=== PATIENT | female | born 1965 ===

== ENCOUNTER 2018-08-30 09:45 | Emergency (ER) | payer MEDICARE, OTHER ==
[~2018-08-30] VITALS: Ht 160 cm; Wt 98.9 kg
[~2018-08-30 09:45] MED LIST: ALBU90OI INH; AMLO5; AMLO5 PO; ASPI81CH PO; CARV25 PO; FURO20 PO; LISI20 PO; METF500C; Metformin HCl500 MG PO; Omeprazole20 M1 PO; SPIR25 PO
== END 2018-08-30 11:44 | disposition left against medical advice (07) ==
LOC: ER 09:45
DX: Z53.21 Procedure and treatment not carried out due to patient leaving prior to being seen by health care provider (principal)

== ENCOUNTER 2018-09-06 07:51 | Emergency (ER) | payer MEDICARE, OTHER ==
[~2018-09-06] VITALS: Ht 162.6 cm; Wt 97.5 kg
[2018-09-06] MEDS ORDERED: MAVYRET 100-401 EACH PO (08:16)
[2018-09-06 09:11] LABS: BASOPHILS ABSOLUTE AUTO 0.02 K/mm3 (0.00-0.23); BASOPHILS PERCENT AUTO 0 % (0-2); EOSINOPHILS ABSOLUTE AUTO 0.14 K/mm3 (0.00-0.68); EOSINOPHILS PERCENT AUTO 2 % (0-6); Hematocrit 39.6 % (33.0-51.0); Hemoglobin 13.3 g/dL (11.5-16.0); IMMATURE GRAN ABSOLUTE AUTO 0.01 K/mm3 (0.00-0.10); IMMATURE GRAN PERCENT AUTO 0 % (0-1); LYMPHOCYTES ABSOLUTE AUTO 2.78 K/mm3 (0.84-5.20); LYMPHOCYTES PERCENT AUTO 43 % (21-46); MONOCYTES ABSOLUTE AUTO 0.45 K/mm3 (0.16-1.47); MONOCYTES PERCENT AUTO 7 % (4-13); Mean Corpuscular HGB 32.2 pg (26.0-34.0); Mean Corpuscular HGB Conc 33.6 g/dL (31.5-36.5); Mean Corpuscular Volume 96 fL (80-100); Mean Platelet Volume 10.8 fL (9.1-12.4); NEUTROPHILS ABSOLUTE AUTO 3.13 K/mm3 (1.96-9.15); NEUTROPHILS PERCENT AUTO 48 % (41-73); Platelet Count 106 K/mm3 (150-400); RDW Coefficient Variation 13.4 % (11.7-14.2); RDW Standard Deviation 47.5 fL (35.1-46.3); Red Blood Cell Count 4.13 M/mm3 (3.80-5.20); White Blood Cell Count 6.53 K/mm3 (4.00-11.30)
[2018-09-06 09:31] LABS: Alanine Aminotransfer (ALT/SGP 51 U/L (12-78); Albumin, Blood 3.2 g/dL (3.4-5.0); Albumin/Globulin Ratio 0.8 (0.8-1.8); Alk Phos 98 U/L (50-136); Anion Gap 6 mmol/L (6-16); Aspartate Aminotrans (AST/SGOT 40 U/L (12-37); Bilirubin, Total 0.4 mg/dL (0.1-1.0); Blood Urea Nitrogen 14 mg/dL (8-24); Bun/Creatinine Ratio 17.4 (12.0-20.0); CO2, Blood 26 mmol/L (21-32); Calcium, Blood 8.2 mg/dL (8.5-10.1); Chloride, Blood 107 mmol/L (98-108); Globulin, Blood 3.9 g/dL (2.2-4.0); Glomerular Filtration Rate >60 (60-); Glucose, Blood 118 mg/dL (70-99); Sodium, Blood 139 mmol/L (136-145); Total Protein, Blood 7.1 g/dL (6.4-8.2); Troponin I <0.015 ng/mL (0.000-0.040)
== END 2018-09-06 11:15 | disposition left against medical advice (07) ==
LOC: ER 07:51
PROVIDERS: Physician Assistant
DX: R04.2 Hemoptysis (principal); Z79.899 Other long term (current) drug therapy; Z79.82 Long term (current) use of aspirin; J44.9 Chronic obstructive pulmonary disease, unspecified; E11.9 Type 2 diabetes mellitus without complications; Z87.891 Personal history of nicotine dependence
CPT/HCPCS: 36415; 71046; 80053; 83880; 84484; 85025; 93005; 93010; 99283-25

== ENCOUNTER 2019-07-29 17:14 | Emergency (ER) | payer OTHER, MEDICARE ==
[~2019-07-29] VITALS: Ht 162.6 cm; Wt 108.4 kg
[~2019-07-29 17:14] MED LIST changes: +MAVYRET 100-401 EACH PO
[2019-07-29] MEDS ORDERED: Norco 5-325 Ta1 EACH PO (18:22)
== END 2019-07-29 18:37 | disposition home or self-care (01) ==
LOC: ER 17:14
DX: S92.515A Nondisplaced fracture of proximal phalanx of left lesser toe(s), initial encounter for closed fracture (principal); J44.9 Chronic obstructive pulmonary disease, unspecified; E11.9 Type 2 diabetes mellitus without complications; Z79.899 Other long term (current) drug therapy; Z79.51 Long term (current) use of inhaled steroids; Z79.82 Long term (current) use of aspirin; Z87.891 Personal history of nicotine dependence; W22.8XXA Striking against or struck by other objects, initial encounter
CPT/HCPCS: 73630; 99283-25; A9270-GY

== ENCOUNTER → 2020-03-21 | Outpatient (CLI) | payer MEDICARE, OTHER ==
[~2020-03-21] MED LIST changes: +Norco 5-325 Ta1 EACH PO
[2020-03-23 07:10] LABS: HPV 16 Negative (Negative); HPV 18 Negative (Negative); HPV OTHER HR TYPES Negative (Negative)
== END | disposition home or self-care (01) ==
LOC: LAB 17:28 → LAB SHORT 17:28
PROVIDERS: Family Medicine
DX: Z01.419 Encounter for gynecological examination (general) (routine) without abnormal findings (principal)
CPT/HCPCS: 87624; G0123

== ENCOUNTER 2021-11-29 02:07 | Inpatient (IN) | payer MEDICARE, OTHER ==
[~2021-11-29] VITALS: Ht 167.6 cm; Wt 106.6 kg
[2021-11-29 02:40] LABS: Calcium, Ionized (POC) 1.48 mmol/L (1.10-1.46); Chloride (POC) 99 mmol/L (98-108); Creatinine (POC) 1.1 mg/dL (0.6-1.0); Glucose (ISTAT POC) 273 mg/dL (70-99); Hemoglobin (POC) 16.3 g/dL (12.0-16.0); Potassium (POC) 4.8 mmol/L (3.5-5.5); Sodium (POC) 139 mmol/L (135-148); Total CO2 (POC) 24 mmol/L (21-32)
[2021-11-29 03:05] LABS: BASOPHILS ABSOLUTE AUTO 0.09 K/mm3 (0.00-0.23); BASOPHILS PERCENT AUTO 1 % (0-2); EOSINOPHILS ABSOLUTE AUTO 0.13 K/mm3 (0.00-0.68); EOSINOPHILS PERCENT AUTO 1 % (0-6); Hematocrit 50.7 % (33.0-51.0); Hemoglobin 15.7 g/dL (11.5-16.0); Mean Corpuscular HGB 30.9 pg (26.0-34.0); Mean Corpuscular Volume 100 fL (80-100); NRBC ABSOLUTE 0.07 K/mm3 (0.00-0.02); NRBC Auto 0.4 /100 WBC (0.0-0.2); Platelet Count 120 K/mm3 (150-400); RDW Coefficient Variation 13.2 % (11.7-14.2); RDW Standard Deviation 49.6 fL (35.1-46.3); Red Blood Cell Count 5.08 M/mm3 (3.80-5.20); White Blood Cell Count 18.46 K/mm3 (4.00-11.30)
[2021-11-29 03:10] LABS: IMMATURE GRAN ABSOLUTE AUTO 0.49 K/mm3 (0.00-0.10); IMMATURE GRAN PERCENT AUTO 3 % (0-1); LYMPHOCYTES ABSOLUTE AUTO 12.18 K/mm3 (0.84-5.20); LYMPHOCYTES PERCENT AUTO 66 % (21-46); MONOCYTES ABSOLUTE AUTO 0.58 K/mm3 (0.16-1.47); MONOCYTES PERCENT AUTO 3 % (4-13); NEUTROPHILS ABSOLUTE AUTO 4.99 K/mm3 (1.96-9.15); NEUTROPHILS PERCENT AUTO 27 % (41-73)
[2021-11-29 03:16] LABS: Magnesium, Blood 2.2 mg/dL (1.6-2.4)
[2021-11-29 03:21] LABS: International Normalized Ratio 1.23; Prothrombin Time Results 12.7 Sec (9.7-11.5)
[2021-11-29 03:31] LABS: Albumin, Blood 2.9 g/dL (3.4-5.0); Albumin/Globulin Ratio 0.9 (0.8-1.8); Bilirubin, Total 0.3 mg/dL (0.1-1.0); Bun/Creatinine Ratio 10.5 (12.0-20.0); Calcium, Blood 13.7 mg/dL (8.5-10.1); Creatinine, Blood 1.05 mg/dL (0.40-1.00); Globulin, Blood 3.3 g/dL (2.2-4.0); Potassium, Blood 5.3 mmol/L (3.5-5.5); Total Protein, Blood 6.2 g/dL (6.4-8.2)
[2021-11-29 05:59] LABS: Source, Urine Foley catheter
[2021-11-29 06:03] LABS: Appearance, Urine Clear (Clear); Bilirubin, Urine Neg (Neg); Blood, Urine 2+ (Neg); Color, Urine Yellow (P-Yellow); Glucose Qualitative, Urine Neg (Neg); Ketones, Urine Neg (Neg); Leukocyte Esterase, Urine Neg (Neg); Nitrite, Urine Neg (Neg); Protein, Urine 3+ (Neg); Urobilinogen, Urine NORM (Normal)
[2021-11-29 06:08] LABS: Bacteria Rare /hpf; Squamous Epithelial Cells Rare /hpf (Few); White Blood Cells, Urine Not Seen /hpf (0-5)
[2021-11-29 06:09] LABS: Amorphous Light (0-Heavy); Renal Epithelial Few /hpf (0-Rare)
[2021-11-29 06:13] LABS: U Amphetamine Screen DETECTED; U Barbituate Screen Not Detected; U Benzodiazapine Screen Not Detected; U Buprenorphine Screen Not Detected; U Cannabinoids Screen DETECTED; U Cocaine Screen Not Detected; U Methadone Screen Not Detected; U Methamphetamine Screen DETECTED; U Opiates Screen Not Detected; U Oxycodone Screen Not Detected; U Phencyclidine Screen Not Detected; U Propoxyphene Screen Not Detected
--- NOTE | 2021-11-29 06:35 | NUR ---
RECEIVED REPORT FROM CHAUNCEY WRIGHT, RN AT 0430. PT WAS AT HOME, STATED SHE COULD NOT BREATHE AND THEN COLLAPSED, WHICH WAS WITNESSED BY FAMILY. FAMILY STARTED CPR AND EMS WAS CALLED. EMS CONTINUED CPR AND GAVE 5 ROUNDS OF EPI, ROSC WAS OBTAINED WHEN THE APPROACHED THE ED. 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 PT ARRIVED AT 0510 ON VENT, FENTANYL AT 50MCG/HR, LEVOPHED AT 15MCG/MIN AND DOPAMINE AT 10MCG/KG/MIN, INFUSING INTO CENTRAL RIGHT IJ. TEMP OF 96.5. SHE IS NOT ALERT, DOES NOT RESPOND TO STIMULI, PUPILS 4MM, SLUGGISH BUT REACTIVE. ONLY PALPABLE PULSE IS TO RIGHT FEMORAL. BLEEDING NOTED FROM LEFT GROIN, APPEARS A PUNCTURE SITE. GAUZE APPLIED AND TAPED. HR IS FULLY PACED, RATE IN 70'S PER ZOLL. BP HYPOTENSIVE, LEVOPHED TITRATED TO 30MCG/MIN AND DOPAMINE INCREASED TO 20MCG/KG/MIN. LACY PATENT, MINIMAL URINE OUT, SENT FOR UA AND TOX SCREEN. PT HAS I/O TO LEFT LOWER LEG, AND 2 20G PERIPHERAL IV IN LEFT ARM. MULTIPLE FAMILY MEMBERS PRESENT, PT'S RING ON RIGHT HAND REMOVED AND GIVEN TO DAUGHTER DRISS. DR. QUAN TO BEDSIDE AROUND 0545, SPOKE WITH FAMILY AND FAMILY WOULD LIKE TO PROCEED A DNR AND WILL MAKE COMFORT SOON FAMILY MEMBERS SAY GOODBYE. PT'S SON, GLO BENITEZ, ESTABLISHED PRIMARY DECISION MAKER BY [employer] [facility]. AT 0620, RT CALLED TO BEDSIDE FOR EXTUBATION PER FAMILY REQUEST. FENTANYL REMAINED ON, LEVOPHED AND DOPAMINE TURNED OFF. PT EXTUBATED AT 0640 AND TIME OF 0645. FAMILY HAVE DECIDED ON [place] [facility] IN [place]. PT HAS NO BELONGINGS AT THIS TIME. PT IS NOT A CANDIDATE FOR ORGAN DONATION. DAY SHIFT CHARGE TO CALL MORTUARY.
== END 2021-11-29 06:45 | DRG 309 ==
LOC: ER 02:07 → ICUW 03:53 → ICUE 05:06
PROVIDERS: Student in an Organized Health Care Education/Training Program; ADMIT Internal Medicine
PROC: 5A12012 Performance of Cardiac Output, Single, Manual (ICD-10-PCS; principal; 2021-11-29)
PROC: 5A1935Z Respiratory Ventilation, Less than 24 Consecutive Hours (ICD-10-PCS; 2021-11-29)
PROC: 0BH18EZ Insertion of Endotracheal Airway into Trachea, Via Natural or Artificial Opening Endoscopic (ICD-10-PCS; 2021-11-29)
PROC: 05HM33Z Insertion of Infusion Device into Right Internal Jugular Vein, Percutaneous Approach (ICD-10-PCS; 2021-11-29)
PROC: B543ZZA Ultrasonography of Right Jugular Veins, Guidance (ICD-10-PCS; 2021-11-29)
PROC: 5A2204Z Restoration of Cardiac Rhythm, Single (ICD-10-PCS; 2021-11-29)
DX: I44.2 Atrioventricular block, complete (principal); I42.9 Cardiomyopathy, unspecified; G93.1 Anoxic brain damage, not elsewhere classified; E87.2 Acidosis; R57.0 Cardiogenic shock; Z51.5 Encounter for palliative care; Z66 Do not resuscitate; I46.9 Cardiac arrest, cause unspecified; J44.9 Chronic obstructive pulmonary disease, unspecified; E11.9 Type 2 diabetes mellitus without complications; E66.9 Obesity, unspecified; Z68.37 Body mass index [BMI] 37.0-37.9, adult; Z79.82 Long term (current) use of aspirin; Z79.899 Other long term (current) drug therapy; Z90.49 Acquired absence of other specified parts of digestive tract; Z98.890 Other specified postprocedural states; Z87.891 Personal history of nicotine dependence
CPT/HCPCS: 31500; 36415; 36556; 51702; 71045; 80047; 80053; 81001; 83605; 83690; 83735; 83880; 84484; 85014; 85025; 85610; 85730; 86850; 86900; 86901; 92950; 93005; 93010; 94002; 94640; 94664; 99291-25; 99292; C1751; J0282; J0692; J1265; J2704; J3010; J3370; J7050; J7060